=== PATIENT | male | born 1995 | race Caucasian/White ===

== ENCOUNTER 2019-03-09 14:20 | Emergency (ER) | payer OTHER ==
[~2019-03-09] VITALS: Ht 177.8 cm; Wt 70.6 kg
--- NOTE | 2019-03-09 15:18 | REP ---
HISTORY: Trauma. Limited plain film examination of the sternum shows no evidence of a gross fracture, however, CT is more sensitive. IMPRESSION: No gross fracture. CT is more sensitive. Electronically Signed by Juan Welch DO 03/09/2019 03:20 P
--- NOTE | 2019-03-09 15:19 | REP ---
REASON: Trauma. Single frontal view was obtained. FINDINGS: The superior mediastinal structures are midline. The cardiac silhouette is unremarkable in size, shape, and position. The diaphragmatic surfaces of the lungs are regular, and the costophrenic angles are clear. The pulmonary pedro are clear. The imaged osseous structures are intact. IMPRESSION: There is no acute cardiopulmonary disease. Prior ORIF right clavicle noted. Electronically Signed by Juan Welch DO 03/09/2019 04:28 P
[2019-03-09] MEDS ORDERED: IBUPROFEN 800 MG TAB PO ONE (17:15)
[2019-03-09 17:37] LABS: BASO % 0.4 % (0.0-1.0); EOS # 0.2 10^3/uL (0.0-0.50); EOS % 1.5 % (0.0-3.0); HEMATOCRIT 41.9 % (42.0-52.0); HEMOGLOBIN 14.3 g/dl (13.5-17.5); LYMPH # 2.7 10^3/uL (1.5-6.5); LYMPH % 26.8 % (24.0-44.0); MEAN CORPUSCULAR HGB CONC 34.1 g/dl (32.0-36.5); MONO # 0.7 10^3/uL (0.0-0.8); MONO % 6.6 % (0.0-5.0); NEUTROPHILS # 6.4 10^3/uL (1.8-7.7); NEUTROPHILS % 64.6 % (36.0-66.0); PLATELET COUNT, AUTOMATED 289 10^3/uL (150-450); RED BLOOD COUNT 4.93 10^6/uL (4.30-6.10); WHITE BLOOD COUNT 9.9 10^3/uL (4.0-10.0)
[2019-03-09] MEDS ORDERED: ISOVUE-370 76% 100ML VIAL (Q9967) As Ordered ONE (18:10)
[2019-03-09 18:22] LABS: CK-MB VALUE MASS 3.4 NG/ML (<3.6); CPK CREATINE PHOSPHOKINASE 1654 U/L (39-308); MB/CK RELATIVE INDEX 0.21 (< OR =4); TROPONIN I < 0.02 NG/ML (< 0.10)
--- NOTE | 2019-03-09 19:28 | REPVR ---
EXAM: CT Chest With Contrast EXAM DATE/TIME: 03/09/2019 6:18 PM CLINICAL HISTORY: 23 years old, male; Injury or trauma; Injury history: Person fell on him; Initial encounter; Blunt trauma (contusions or hematomas); Additional info: Blunt trauma to chest TECHNIQUE: Imaging protocol: Computed tomography images of the chest with intravenous contrast. 3D rendering: MIP reconstructed images were created and reviewed. Radiation optimization: All CT scans at this facility use at least one of these dose optimization techniques: automated exposure control; mA and/or kV adjustment per patient size (includes targeted exams where dose is matched to clinical indication); or iterative reconstruction. Contrast material: ISOVUE 370; Contrast volume: 75 ml; Contrast route: IV; COMPARISON: CR Chest, 1 view 03/09/2019 2:41 PM FINDINGS: Lungs: Unremarkable. No consolidation. No masses. Pleural space: Unremarkable. No pneumothorax. No pleural effusion. Heart: Unremarkable. No cardiomegaly. No pericardial effusion. Mediastinum: Soft tissue density within the anterior mediastinum consistent with residual thymus. No mediastinal hematoma. Aorta: Unremarkable. No aortic aneurysm. Lymph nodes: Unremarkable. No enlarged lymph nodes. Bones/joints: Old healed internally fixed fracture deformity of the right clavicle. Nondisplaced fractures of the anterior edges of the right fourth and fifth ribs (axial images 49-66 of series 202). Soft tissues: Unremarkable. IMPRESSION: Nondisplaced fractures of the anterior edges of the right fourth and fifth ribs.. Electronically signed by: Sung Rojo On 03/09/2019 19:28:04 PM
[2019-03-09] MEDS ORDERED: NS 1,000 ML IV ONE ×3 (19:45→21:45)
[2019-03-09] MEDS ORDERED: POTASSIUM CHLORIDE 10 MEQ SR TABLET PO ONE (22:15)
[2019-03-09 23:45] LABS: BLOOD UREA NITROGEN 14 MG/DL (7-18); CALCIUM LEVEL 7.7 MG/DL (8.5-10.1); CARBON DIOXIDE LEVEL 21 MEQ/L (21-32); CHLORIDE LEVEL 112 MEQ/L (98-107); CPK CREATINE PHOSPHOKINASE 1101 U/L (39-308); CREATININE FOR GFR 1.13 MG/DL (0.70-1.30); GLOMERULAR FILTRATION RATE > 60.0 (>60); GLUCOSE, FASTING 84 MG/DL (70-100); POTASSIUM SERUM 4.1 MEQ/L (3.5-5.1); SODIUM LEVEL 142 MEQ/L (136-145)
[2019-03-09 23:57] VITALS: BP 135/60
[2019-03-10] MEDS ORDERED: NORC1TAB7 PO (00:16)
--- NOTE | 2019-03-10 05:29 | ECGEPIP ---
[facility] - ED Test Date: 2019-03-09 Pat Name: LEIGHANN MATHEWS Department: Room: - Gender: Male [employer]: ely : 1995 Requested By: JEN KASPER PA-C. Order Number: [id number] Reading MD: Chaitanya Salcedo Measurements Intervals [place] Rate: 63 P: 78 IA: 181 QRS: 89 QRSD: 94 T: 53 QT: 394 QTc: 406 Interpretive Statements SINUS RHYTHM WITH MARKED SINUS ARRHYTHMIA BENIGN EARLY REPOLARIZATION NO PRIORS FOR COMPARISON Electronically Signed on 03-10-2019 5:29:13 EDT by Chaitanya Salcedo
== END 2019-03-10 00:28 | disposition home or self-care (01) ==
LOC: M ED 14:20
DX: S22.41XA Multiple fractures of ribs, right side, initial encounter for closed fracture (principal); W50.0XXA Accidental hit or strike by another person, initial encounter; Y92.89 Other specified places as the place of occurrence of the external cause; R79.89 Other specified abnormal findings of blood chemistry
CPT/HCPCS: 71045; 71120; 71260; 80047; 80048; 82550; 82553; 84484; 85025; 93005; 96360; 96361; 99284; Q9967

== ENCOUNTER 2019-12-13 09:09 | Emergency (ER) | payer OTHER ==
[~2019-12-13] VITALS: Ht 177.8 cm; Wt 73.7 kg
[~2019-12-13 09:09] MED LIST: NORC1TAB7 PO
--- NOTE | 2019-12-13 10:10 | REP ---
LEFT RIB SERIES: Four views of the left ribs performed. No fracture or bone lesion is seen. A PA view of the chest demonstrates no infiltrate in either lung. There is no pleural effusion or pneumothorax. Heart and mediastinum are normal. Metallic plate and screws are seen in the right clavicle. IMPRESSION: Negative left rib series. Electronically Signed by Steve Barron MD 12/13/2019 12:19 P
[2019-12-13 10:34] VITALS: BP 124/63
== END 2019-12-13 10:48 | disposition home or self-care (01) ==
LOC: M ED 09:09
DX: R07.81 Pleurodynia (principal)